=== PATIENT | female | born 1995 | race American Indian/Alaskan Native ===

== ENCOUNTER 2021-02-28 12:04 | Emergency (ER) | payer MEDICAID ==
[2021-02-28 13:07] VITALS: BP 111/78
[2021-02-28 15:30] LABS: Bilirubin,Urine NEG (Negative); Blood,Urine SM (Negative); Color,Urine Yellow (Yellow); Mucus,Urine FEW /HPF; Protein,Urine <15 mg/dL mg/dL (Negative); Urobilinogen,Urine < 2.0 mg/dL (<2.0)
[2021-02-28 15:32] LABS: HCG Qualitative,Urine Negative (Negative)
--- NOTE | 2021-02-28 15:39 | Emergency Department Report ---
ED General Adult HPI - General Chief complaint: Urogenital-Female Stated complaint: ABDOMINAL PAIN Time Seen by Provider: 02/28/21 13:04 Source: patient Mode of arrival: Ambulatory Limitations: No Limitations - History of Present Illness Initial comments: 25-year-old -[place] female patient presents with complaints of dysuria starting this morning. She also admits to urinary frequency, but denies any hematuria, vaginal discharge, or dyspareunia. No abdominal pain or flank pain per patient. She rates her pain as a 6/10 in severity and states it only occurs with urination. She also denies any fever/chills/sweats or prior medical history -: Sudden - Related Data Previous Rx's Medication Instructions Recorded Last Taken Type Ibuprofen [Motrin 600 MG tab] 800 mg PO Q8H PRN #30 tablet 11/22/13 Unknown Rx oxyCODONE /ACETAMINOPHEN [Percocet 1 tab PO Q4HR #30 tablet 11/22/13 Unknown Rx 5/325 mg] Sulfamethoxazole/Trimethoprim 1 each PO BID 5 Days #10 tablet 02/28/21 Unknown Rx [Bactrim DS TAB] Allergies Allergy/AdvReac Type Severity Reaction Status Date / Time No Known Allergies Allergy Unverified 11/20/13 22:35 ED Review of Systems ROS: Stated complaint: ABDOMINAL PAIN Other details as noted in HPI Constitutional: denies: diaphoresis, fever, malaise Cardiovascular: denies: chest pain Gastrointestinal: denies: abdominal pain, nausea, vomiting Genitourinary: urgency, dysuria, frequency. denies: hematuria, discharge, abnormal menses, dyspareunia Skin: denies: lesions Neurological: denies: headache Hematological/Lymphatic: denies: swollen glands ED Past Medical Hx - Past Medical History Hx Hypertension: No Hx Congestive Heart Failure: No Hx Diabetes: No Hx Deep Vein Thrombosis: No Hx Renal Disease: No Hx Sickle Cell Disease: No Hx Seizures: No Hx Asthma: No Hx COPD: No - Social History Smoking Status: Never Smoker - Medications Home Medications: Home Medications Medication Instructions Recorded Confirmed Last Taken Type Ibuprofen [Motrin 600 MG tab] 800 mg PO Q8H PRN #30 tablet 11/22/13 Unknown Rx oxyCODONE /ACETAMINOPHEN [Percocet 1 tab PO Q4HR #30 tablet 11/22/13 Unknown Rx 5/325 mg] Sulfamethoxazole/Trimethoprim 1 each PO BID 5 Days #10 tablet 02/28/21 Unknown Rx [Bactrim DS TAB] ED Physical Exam - General Limitations: No Limitations General appearance: alert, in no apparent distress - Head Head exam: Present: atraumatic, normocephalic - Eye Eye exam: Present: normal appearance - Respiratory Respiratory exam: Absent: normal lung sounds bilaterally - Cardiovascular Cardiovascular Exam: Absent: regular rate - GI/Abdominal GI/Abdominal exam: Present: soft, normal bowel sounds. Absent: distended, tenderness, rebound, rigid - Neurological Exam Neurological exam: Present: alert, oriented X3 - Psychiatric Psychiatric exam: Present: normal affect, normal mood - Skin Skin exam: Present: warm, dry, intact, normal color. Absent: rash ED Course Vital Signs 02/28/21 13:02 Temperature 98.3 F Pulse Rate 98 H Respiratory 20 Rate Blood Pressure 111/78 O2 Sat by Pulse 100 Oximetry ED Medical Decision Making - Lab Data Lab Results 02/28/21 Range/Units Unknown Urine Color Yellow (Yellow) Urine Turbidity Hazy (Clear) Urine pH 6.0 (5.0-7.0) Ur Specific [place] 1.023 (1.003-1.030) Urine Protein <15 mg/dl (Negative) mg/dL Urine Glucose (UA) Neg (Negative) mg/dL Urine Ketones Neg (Negative) mg/dL Urine Blood Sm (Negative) Urine Nitrite Neg (Negative) Urine Bilirubin Neg (Negative) Urine Urobilinogen < 2.0 (<2.0) mg/dL Ur Leukocyte Esterase Sm (Negative) Urine WBC (Auto) 37.0 H (0.0-6.0) /HPF Urine RBC (Auto) 17.0 (0.0-6.0) /HPF U Epithel Cells (Auto) 4.0 (0-13.0) /HPF Urine Mucus Few /HPF Urine HCG, Qual Negative (Negative) - Medical Decision Making 25-year-old -[place] female patient presents with complaints of dysuria starting this morning. She also admits to urinary frequency, but denies any hematuria, vaginal discharge, or dyspareunia. No abdominal pain or flank pain per patient. She rates her pain as a 6/10 in severity and states it only occurs with urination. She also denies any fever/chills/sweats or prior medical history UA shows 37 WBCs. No lower abdominal tenderness or CVA tenderness noted on exam. Her vitals are within normal limits, she is well-appearing, she is stable for discharge home with treatment for UTI. Recommend follow-up with PCP in 3 to 5 days. Strict return precautions were discussed in detail with patient who verbalizes understanding. Critical care attestation.: If time is entered above; I have spent that time in minutes in the direct care of this critically ill patient, excluding procedure time. ED Disposition Clinical Impression: UTI (urinary tract infection) Disposition: TO HOME OR SELFCARE Is pt being admited?: No Condition: Stable Instructions: Urinary Tract Infection, Adult, [id number] Prescriptions: Sulfamethoxazole/Trimethoprim [Bactrim DS TAB] 1 each PO BID 5 Days #10 tablet Referrals: [facility] [Provider Group] - 3-5 Days
== END 2021-02-28 15:00 | disposition home or self-care (01) ==
LOC: ED 12:04
DX: N39.0 Urinary tract infection, site not specified (principal); Z79.899 Other long term (current) drug therapy
CPT/HCPCS: 81001; 81025; 87086

== ENCOUNTER 2021-10-06 16:04 | Emergency (ER) | payer MEDICAID ==
--- NOTE | 2021-10-06 16:27 | Emergency Department Report ---
HPI - General Chief Complaint: Psych Time Seen by Provider: 10/06/21 16:15 - HPI HPI: [facility]/Room 16 The patient is a 26-year-old female present with a chief complaint of suicidal ideation. Patient states she is felt suicidal for 2 months. Today the patient went into a store and pulled a knife out on her cell and stated that she would kill herself. The patient states the only other attempt she made to harm himself was yesterday striking her head one time on the shower wall. Patient denies having a psychiatric history ED Past Medical Hx - Past Medical History Hx Seizures: Yes - Surgical History Past Surgical History?: No - Family History Family history: no significant - Social History Smoking Status: Heavy Tobacco Smoker (2 packs/day) Substance Use Type: Alcohol (Daily), Marijuana - Medications Home Medications: Home Medications Medication Instructions Recorded Confirmed Last Taken Type Nitrofurantoin Luce/M-Cryst 100 mg PO BID #10 capsule 10/07/21 Unknown Rx [Macrobid CAP] ED Review of Systems ROS: Stated complaint: SI Other details as noted in HPI Constitutional: no symptoms reported Eyes: denies: eye pain ENT: denies: throat pain Respiratory: no symptoms reported Cardiovascular: denies: chest pain Endocrine: no symptoms reported Gastrointestinal: denies: abdominal pain Genitourinary: denies: dysuria Musculoskeletal: denies: back pain Neurological: denies: headache Psychiatric: suicidal thoughts Physical Exam - Physical Exam Physical Exam: GENERAL: The patient is well-developed well-nourished female sitting on chair not appearing to be in acute distress. [] HEENT: Normocephalic. Atraumatic. Extraocular motions are intact. Patient has moist mucous membranes. NECK: Supple. Trachea midline CHEST/LUNGS: Clear to auscultation. There is no respiratory distress noted. HEART/CARDIOVASCULAR: Regular. There is no tachycardia. There is no gallop rub or murmur. ABDOMEN: Abdomen is soft, nontender. Patient has normal bowel sounds. There is no abdominal distention. SKIN: There is no rash. There is no edema. There is no diaphoresis. NEURO: The patient is awake, alert, and oriented. The patient is cooperative. The patient has no focal neurologic deficits. The patient has normal speech. GCS 15 MUSCULOSKELETAL: There is no evidence of acute injury. ED Course - Reevaluation(s) Reevaluation #1: 03/02/22 17:58 Patient reportedly had a brief seizure. Patient has a history of seizures and states she thinks she takes Depakote for them ED Medical Decision Making - Lab Data Result diagrams: 10/06/21 16:22 10/06/21 16:22 Laboratory Tests 10/06/21 10/06/21 10/06/21 16:22 16:22 16:22 WBC RBC Hgb Hct MCV MCH MCHC RDW Plt Count Lymph % (Auto) Luce % (Auto) Eos % (Auto) Baso % (Auto) Lymph # (Auto) Luce # (Auto) Eos # (Auto) Baso # (Auto) Seg Neutrophils % Seg Neutrophils # Sodium 142 Potassium 3.0 L Chloride 103.3 Carbon Dioxide 22 Anion Gap 20 BUN 12 Creatinine 0.7 Estimated GFR > 60 BUN/Creatinine Ratio 17 Glucose 97 Calcium 10.0 Salicylates < 0.3 L Acetaminophen 5.0 L Valproic Acid Plasma/Serum Alcohol 10/06/21 10/06/21 10/06/21 16:22 16:22 16:22 WBC 10.1 RBC 4.01 Hgb 12.3 Hct 35.8 MCV 89 MCH 31 MCHC 34 RDW 13.1 L Plt Count 278 Lymph % (Auto) 14.0 Luce % (Auto) 10.3 H Eos % (Auto) 0.6 Baso % (Auto) 0.3 Lymph # (Auto) 1.4 Luce # (Auto) 1.0 H Eos # (Auto) 0.1 Baso # (Auto) 0.0 Seg Neutrophils % 74.8 H Seg Neutrophils # 7.6 Sodium Potassium Chloride Carbon Dioxide Anion Gap BUN Creatinine Estimated GFR BUN/Creatinine Ratio Glucose Calcium Salicylates Acetaminophen Valproic Acid < 2.8 L Plasma/Serum Alcohol < 0.01 - Differential Diagnosis Suicidal ideation Critical care attestation.: If time is entered above; I have spent that time in minutes in the direct care of this critically ill patient, excluding procedure time. ED Disposition Clinical Impression: Suicidal ideation, Seizure, UTI (urinary tract infection) Disposition: 01 HOME / SELF CARE / HOMELESS Is pt being admited?: No Does the pt Need Aspirin: No Condition: Stable Additional Instructions: OUTPATIENT MENTAL HEALTH RESOURCES [facility], [facility] Charlee Jules [address]: [address] [place] [address] [place] [address] [facility] [facility]: [facility] [address] [place] [address] [place] [address] [phone] [facility]: [facility]: [address] [facility] [place] [address] [facility] [address] [facility]: Kavon Obrien MD: [id number] [facility] [address] [facility] [id number] [facility]: [address] [place], [place] [id number] [phone] ID CRISIS AND ACCESS LINE: Prescriptions: Nitrofurantoin Luce/M-Cryst [Macrobid CAP] 100 mg PO BID #10 capsule Referrals: PRIMARY CARE, [Primary Care Provider] - 3-5 Days
[2021-10-06] MEDS ORDERED: SODIUM CHLORIDE 0.9% 1000 ML 1,000 ML IV ONE ×2 (16:38→18:39)
[2021-10-06 16:48] LABS: Basophils % (Auto) 0.3 % (0.0-1.8); Eosinophils # (Auto) 0.1 K/mm3 (0.0-0.4); Eosinophils % (Auto) 0.6 % (0.0-4.3); Hematocrit 35.8 % (30.3-42.9); Hemoglobin 12.3 gm/dl (10.1-14.3); Lymphocytes # (Auto) 1.4 K/mm3 (1.2-5.4); Mean Corpuscular HGB Conc 34 % (30-34); Mean Corpuscular Volume 89 fl (79-97); Monocytes % (Auto) 10.3 % (0.0-7.3); Platelet Count 278 K/mm3 (140-440); Red Blood Count 4.01 M/mm3 (3.65-5.03); Red Cell Distribution Width 13.1 % (13.2-15.2)
[2021-10-06 17:11] LABS: Blood Urea Nitrogen 12 mg/dL (7-17); Hemolysis Index 9
[2021-10-06 17:17] LABS: BUN/Creatinine Ratio 17
[2021-10-06] MEDS ORDERED: POTASSIUM CHLORIDE ER 20 MEQ TAB PO ONE (17:43)
[2021-10-06] MEDS ORDERED: VALPROATE SODIUM 500 MG in SODIUM CHLORIDE 0.9% 100 ML IV ONE (19:00)
[2021-10-06] MEDS ORDERED: ZIPRASIDONE MESYLATE 20 MG VIAL IM ONE (19:31)
[2021-10-06] MEDS: DIVALPROEX ER 500 MG TAB PO SCH (21:39)
[2021-10-07 03:33] LABS: Bacteria,Urine 1+ /HPF (Negative); Mucus,Urine 3+ /HPF
[2021-10-07 03:35] LABS: Color,Urine Amber (Yellow)
[2021-10-07 03:38] LABS: Bilirubin,Urine Negative (Negative); Blood,Urine Trace (Negative)
[2021-10-07 03:39] LABS: Urobilinogen,Urine < 2.0 mg/dL (<2.0)
[2021-10-07 03:41] LABS: Amphetamine Screen,Urine PRESUMPTIVE POSITIVE; Benzodiazepines Screen,Urine PRESUMPTIVE NEGATIVE; Cannabinoid Screen,Urine PRESUMPTIVE POSITIVE; Cocaine Screen,Urine PRESUMPTIVE NEGATIVE; Methadone Screen,Urine PRESUMPTIVE NEGATIVE; Opiate Screen,Urine PRESUMPTIVE NEGATIVE
[2021-10-07] MEDS ORDERED: ACETAMINOPHEN 500 MG TAB ONE (03:54)
[2021-10-07 09:15] VITALS: BP 117/53
--- NOTE | 2021-10-07 09:46 | Consultation ---
History of Present Illness - Reason for Consult Consult date: 10/07/21 Reason for consult: psychosis - History of Present Psychiatric Illness HPI: The patient is a 26-year-old female present with a chief complaint of suicidal ideation. Patient states she is felt suicidal for 2 months. Today the patient went into a store and pulled a knife out on her cell and stated that she would kill herself. The patient states the only other attempt she made to harm himself was yesterday striking her head one time on the shower wall. Patient denies having a psychiatric history The patient was seen today. She presented with suicidal thoughts. During my evaluation, the patient is acutely psychotic. She is responding to internal stimuli. She is preoccupied, and slow to respond. She is at times whispering, and suspicious. I ask the patient is she is hearing voices, she says "yes." I ask her what are the voices saying, she replies "schizophrenia." I repeat the question again, the patient blurts out "suicide." She then says "safety, I don't feel safe." I ask the patient why didn't she feel safe, she stares at me. She initially denies doing any illicit drugs, but then says she "only did meth once and it's not even in her system." The patient's drug screen is positive for amphetamines. The patient could not recall any meds that she takes, but states that she is not currently on any. She says she is homeless right now, but can go back to her mother's house if she chooses. PSYCH HISTORY Diagnoses: Schizophrenia Suicide attempts or Self-harm behavior: Denies Prior psychiatric hospitalizations: Denies Substance Abuse history: Methamphetamine Previous psychiatric medications tried: Denies Outpatient treatment: Denies PAST MEDICAL HISTORY: None reported Family Psychiatric History: None reported or documented SOCIAL HISTORY Marital Status: Single Living Arrangements: Homeless Employment Status: unemployed Access to guns/weapons: Denies Education: History of Abuse: none reported Legal History: none reported REVIEW OF SYSTEMS Constitutional: Negative for weight loss ENT: Negative for stridor Respiratory: Negative for cough or hemoptysis All other systems reviewed and are negative MENTAL STATUS EXAMINATION General Appearance and Behavior: Age appropriate, good hygiene, wearing appropr iate clothes, suspicious, cooperative Cooperation: Participating, guarded Psychomotor Behavior: normal Mood: okay, unsafe Affect and affective range: congruent with mood Thought Process: illogical, responding to internal stimuli Thought Content: SI, hallucinations Speech: Normal volume, Regular rate and rhythm, Suicidal Ideation: Yes Homicidal Ideation: Denies Hallucinations: Auditory Delusions: Paranoid Impulse Control: Limited Insight and Judgment: Limited insight and judgment, Memory: Limited Attention: Normal Orientation: Alert, oriented Assessment and Plan (1) Schizophrenia Current Visit: Yes Status: Acute Treatment Plan 1013 Olanzapine 5mg po daily Prozac 10mg po daily Doxepin 10mg po qhs Sitter: Per primary Medical: per primary Disposition: Recommend acute psychiatric inpatient treatment Will follow. Thanks Case staffed with Dr. Walters Medications and Allergies Allergies Allergy/AdvReac Type Severity Reaction Status Date / Time No Known Allergies Allergy Verified 10/06/21 16:07 Home Medications Medication Instructions Recorded Confirmed Last Taken Type Unobtainable 10/06/21 10/06/21 Unknown History Active Meds: Active Medications Divalproex Sodium (Divalproex Er 500 Mg Tab) 500 mg PO QDAY BRENNA Last Admin: 10/06/21 21:39 Dose: Not Given Mental Status Exam - Vital signs Last Vital Signs Temp 98.5 F 10/07/21 09:12 Pulse 92 H 10/07/21 09:12 Resp 18 10/07/21 09:12 BP 117/53 10/07/21 09:12 Pulse Ox 100 10/07/21 09:12 Results Result Diagrams: 10/06/21 16:22 10/06/21 16:22 Abnormal lab results 10/06/21 10/06/21 10/06/21 Range/Units 16:22 16:22 16:22 RDW (13.2-15.2) % [place] % (Auto) (0.0-7.3) % [place] # (Auto) (0.0-0.8) K/mm3 Seg Neutrophils % (40.0-70.0) % Potassium 3.0 L (3.6-5.0) mmol/L Ur Specific [place] (1.003-1.030) Urine WBC (Auto) (0.0-6.0) /HPF U Epithel Cells (Auto) (0-13.0) /HPF Salicylates < 0.3 L (2.8-20.0) mg/dL Acetaminophen 5.0 L (10.0-30.0) ug/mL Valproic Acid (50-100) ug/mL 10/06/21 10/06/21 10/07/21 Range/Units 16:22 16:22 02:51 RDW 13.1 L (13.2-15.2) % [place] % (Auto) 10.3 H (0.0-7.3) % [place] # (Auto) 1.0 H (0.0-0.8) K/mm3 Seg Neutrophils % 74.8 H (40.0-70.0) % Potassium (3.6-5.0) mmol/L Ur Specific [place] 1.035 H (1.003-1.030) Urine WBC (Auto) 81.0 H (0.0-6.0) /HPF U Epithel Cells (Auto) 14.0 H (0-13.0) /HPF Salicylates (2.8-20.0) mg/dL Acetaminophen (10.0-30.0) ug/mL Valproic Acid < 2.8 L (50-100) ug/mL All other labs normal.
[2021-10-07] MEDS ORDERED: FLUoxetine 10 MG TAB PO SCH (10:00)
[2021-10-07] MEDS: DIVALPROEX ER 500 MG TAB PO SCH (10:09)
--- NOTE | 2021-10-07 18:48 | Emergency Department Report ---
Blank Doc - Documentation Documentation: 26-year-old female on 101 awaiting transfer to psychiatric facility. UA cont amination versus UTI. Will be started on Macrobid x5 days
[2021-10-07] MEDS ORDERED: NITROFURANTOIN MONOHYD/M-CRYST 100 MG CAP PO SCH (22:00)
[2021-10-07] MEDS ORDERED: DOXEPIN 10 MG CAP PO SCH (22:00)
== END 2021-10-08 07:34 | disposition home or self-care (01) ==
LOC: ED 16:04
DX: R45.851 Suicidal ideations (principal); R56.9 Unspecified convulsions; N39.0 Urinary tract infection, site not specified; F17.200 Nicotine dependence, unspecified, uncomplicated; Z20.822 Contact with and (suspected) exposure to COVID-19
CPT/HCPCS: 36415; 80048; 80164; 80307; 81001; 85025; 87086; 96360; 96372; 99284; J3486; J7030; U0003; 80320; Q0162; G0480